=== PATIENT | female | born 1940 | race Caucasian/White ===

== ENCOUNTER 2019-10-11 | Emergency (ER) | payer MEDICARE, OTHER ==
[~2019-10-11] MED LIST: AMOXICILLIN875 MG OR; AMPICILLIN500 MG PO; ANTIVERT12.5 MG PO; ASPIRIN LOW DOS81 MG PO; ATENOLOL100 MG PO; ATENOLOL50 MG OR; AZO STANDARD PO; BENTYL20 MG PO; CEFTIN500 MG PO; CIPROFLOXACN500 MG PO; CORAL CALCIU1000 MG PO; CRANBERRY PO; D 10001000 UNIT PO; DICLOFENAC 1% TOP; EQL ASPIRIN81 MG PO; FLEXERIL OR; FLOMAX0.4 M1 PO; FLUARIX QUADRIV1 IN1 IM; LASIX 10 MG10 MG/TA1 PO; LOSARTAN POT25 MG PO; Levaquin PO; MACRODANTIN100 MG PO; NAPROSYN500 MG PO; NITROFUR MAC50 MG OR; NITROFUR MAC50 MG PO; PHENAZOPYRID100 MG PO; PYRIDIUM200 MG PO; SENNA1 TAB PO; SIMVASTATIN10 MG PO; TESSALON PER100 MG PO; TRAMADOL HCL50 MG PO; ULTRAM50 MG OR; XARELTO10 MG PO; ZOFRAN4 MG/TAB PO; [UNRECOGNIZED DRUG - CODE]; [UNRECOGNIZED DRUG - OTHER] PO
[2019-10-11] MEDS ORDERED: METOPROL TAR100 MG PO (11:49)
== END 2019-10-11 14:35 | disposition home or self-care (01) ==
DX: S86.911A Strain of unspecified muscle(s) and tendon(s) at lower leg level, right leg, initial encounter (principal); M17.11 Unilateral primary osteoarthritis, right knee; M54.5 Low back pain; I10 Essential (primary) hypertension; X50.0XXA Overexertion from strenuous movement or load, initial encounter; Y93.89 Activity, other specified; Y92.009 Unspecified place in unspecified non-institutional (private) residence as the place of occurrence of the external cause

== ENCOUNTER 2019-10-20 | Emergency (ER) | payer MEDICARE, OTHER ==
[~2019-10-20] MED LIST changes: +METOPROL TAR100 MG PO
[2019-10-20 21:15] LABS: HEMATOCRIT 39.2 % (37.0-47.0); HEMOGLOBIN 13.7 g/dl (12.0-16.0); IMMATURE GRANULOCYTES 0.3 % (0.0-5.0); MEAN CORPUSCULAR HGB 31.8 pG CALC (26.0-32.0); MEAN CORPUSCULAR HGB CONC 34.9 g/dL CAL (32.0-36.0); NEUT# 5.62 thou/uL (2.00-7.15); RED BLOOD COUNT 4.31 mill/uL (4.20-5.60); RED CELL DISTRI WIDTH 12.4 % (11.5-15.5)
[2019-10-20 21:36] LABS: ALBUMIN 4.2 g/dL (3.2-5.0); ALKALINE PHOSPHATASE 83 u/l (38-126); ANION GAP 15 (6-22 (CALC)); BILIRUBIN, TOTAL 0.7 mg/dL (0.0-1.4); BUN 28 mg/dL (8-23); BUN/CREATININE RATIO 34 (12-20 (CALC)); CHLORIDE 103 mmol/l (95-108); CREATININE 0.8 mg/dL (0.5-1.0); GFR > 60 ML/MIN (>=60 (CALC)); GFR FOR AFR.AMER. > 60 ML/MIN (>=60 (CALC)); POTASSIUM 3.7 mmol/l (3.5-5.1); SGOT/AST 25 u/l (9-36); SODIUM 133 mmol/l (137-146); TOTAL PROTEIN 7.3 g/dL (6.3-8.2)
[2019-10-20 21:40] LABS: CARBON DIOXIDE 19 mmol/l (22-30)
[2019-10-20 23:05] LABS: URINE BILIRUBIN - DIPSTICK NEGATIVE (NEGATIVE); URINE BLOOD DIPSTICK LARGE (NEGATIVE); URINE COLOR YELLOW; URINE GLUCOSE - DIPSTICK NEGATIVE (NEGATIVE); URINE KETONE NEGATIVE (NEGATIVE); URINE PROTEIN - DIPSTICK TRACE mg/dL (NEG-TRACE); URINE SPECIFIC GRAVITY 1.025; URINE UROBILINOGEN - DIPSTICK 0.2 E.U./dL (0.2)
[2019-10-20 23:09] LABS: URINE LEUK ESTERASE SMALL (NEGATIVE); URINE NITRITE - DIPSTICK POSITIVE (Negative)
[2019-10-20 23:28] LABS: URINE BACTERIA MODERATE hpf; URINE RBC TNTC RBC/hpf (0-5); URINE SQUAMOUS EPITHELIAL CELL FEW EPI/hpf (0-FEW); URINE WBC 20-50 WBC/hpf (0-5)
[2019-10-20] MEDS ORDERED: MS CONTIN30 MG PO (23:45)
[2019-10-20] MEDS ORDERED: KEFLEX500 M1 PO (23:45)
[2019-10-20] MEDS ORDERED: ORPHENADRINE100 MG PO (23:45)
[2019-10-20] MEDS ORDERED: TORADOL PO (23:45)
== END 2019-10-20 23:55 | disposition home or self-care (01) ==
PROVIDERS: Family Medicine
DX: N30.00 Acute cystitis without hematuria (principal); M47.26 Other spondylosis with radiculopathy, lumbar region; I10 Essential (primary) hypertension; B96.20 Unspecified Escherichia coli [E. coli] as the cause of diseases classified elsewhere
CPT/HCPCS: J0131

== ENCOUNTER 2021-08-07 10:43 | Emergency (ER) | payer MEDICARE, OTHER ==
[~2021-08-07] VITALS: Ht 168.9 cm; Wt 97.7 kg
[~2021-08-07 10:43] MED LIST changes: +KEFLEX500 M1 PO; +MS CONTIN30 MG PO; +ORPHENADRINE100 MG PO; +TORADOL PO
[2021-08-07] MEDS ORDERED: GABAPENTIN100 MG PO (17:31)
[2021-08-07] MEDS ORDERED: LIDOCAINE PATCH 55 % TD (17:31)
[2021-08-07] MEDS ORDERED: TORADOL PO (17:32)
[2021-08-07 18:19] VITALS: BP 155/70
== END 2021-08-07 18:53 | disposition home or self-care (01) ==
LOC: ED 10:43
DX: M51.16 Intervertebral disc disorders with radiculopathy, lumbar region (principal); I10 Essential (primary) hypertension; E78.5 Hyperlipidemia, unspecified